=== PATIENT | male | born 1935 | race Caucasian/White ===

== ENCOUNTER 2017-03-08 21:00 | Inpatient (IN) | payer MEDICARE, BC ==
[2017-03-08] MEDS ORDERED: MAGNESIUM HYDROXIDE SUSP 30 ML CUP PO PRN (23:15)
[2017-03-08] MEDS ORDERED: ACETAMINOPHEN 325 MG TAB PO PRN (23:15)
[2017-03-08] MEDS ORDERED: LORazepam 0.5 MG TAB age > 65 yrs PO PRN (23:15)
[2017-03-08] MEDS ORDERED: ALUMINUM/MAGNESIUM/SIMETH 30 ML CUP PO PRN (23:15)
[2017-03-08] MEDS ORDERED: LORazepam 2 MG/ML VIAL - age > 65 yrs IM PRN (23:15)
[2017-03-09 01:07] VITALS: BP_SYST 180; BP_SYST 204; BP_DIAS 82; BP_DIAS 95; PULSE 70; RESP 18; TEMP 98.2; O2SAT 98
[2017-03-09 07:43] VITALS: BP 190/100; PULSE 97; O2SAT 97
[2017-03-09] MEDS: NICOTINE 21 MG/24 HR PATCH T-DERMAL SCH (08:43)
[2017-03-09 10:00] VITALS: BP 182/82; PULSE 67; O2SAT 98
[2017-03-09] MEDS ORDERED: AMLO2.5T PO (10:22)
[2017-03-09] MEDS ORDERED: BENZ1CAP8 PO (10:22)
[2017-03-09] MEDS ORDERED: DONE10TA7 PO (10:22)
[2017-03-09] MEDS ORDERED: MEMA1TAB2 PO (10:22)
[2017-03-09] MEDS ORDERED: TAMS0.4C4 PO (10:22)
[2017-03-09] MEDS ORDERED: AZEL1SPR2 EACH NARE (10:22)
[2017-03-09] MEDS ORDERED: ALBU6.7H INH (10:22)
[2017-03-09] MEDS ORDERED: OMEP40CA2 PO (10:22)
[2017-03-09 14:32] VITALS: BP 178/81; PULSE 68; RESP 18; TEMP 98.5; O2SAT 99
--- NOTE | 2017-03-09 15:51 | HHI.HP ---
Provisional Diagnosis Admission Date Mar 08, 2017 at 21:00 [place] I. Dementia with behavioral disturbances Certification of Person's Competence To Provide Express and Informed Consent I have personally examined Nick Romero , a person being served at [facility] on, Mar 09, 2017 15:44. Express and informed consent means consent voluntarily given in writing, by a competent person, after sufficient explanation and disclosure of the subject matter involved to enable the person to make a knowing and willful decision without any element of force, fraud, deceit, duress, or other form of constraint or coercion. This person is 18 years of age or older, is not now known to be incompetent to consent to treatment with a guardian advocate, and does not have a health care surrogate or proxy currently making medical treatment decisions. I have found this person to be one of the following: [] Competent to provide express and informed consent, as defined above, for voluntary admission to this facility and is competent to provide express and informed consent for treatment. He/she has the consistent capacity to make well reasoned, willful, and knowing decisions concerning his or her medical or mental health treatment. The person fully and consistently understands the purpose of the admission for examination/placement and is fully capable of personally exercising all rights assured [place] Incompetent to provide express and informed consent to voluntary admission, and this is incompetent to provide express and informed consent to treatment. The person must be transferred to involuntary status and a petition for a guardian advocate filed with the Circuit Court. [X] Refusing to provide express and informed consent to voluntary admission but is competent to provide express and informed consent for treatment. The person must be discharged or transferred to involuntary status. Form shall be completed within 24 hours of a person's arrival at the receiving facility and filed in the clinical record of each person: 1. Admitted on a voluntary basis 2. Permitted to provide express and informed consent to his/her own treatment 3. Allowed to transfer from involuntary to voluntary status 4. Prior to permitting a person to consent to his or her own treatment after having been previously found incompetent to consent to treatment. History of Present Illness Capacity: Lacks Capacity HPI The patient is a 81-year-old man, domiciled with his , psychiatric history of dementia, medical history of COPD and CKD, was brought to the hospital under [facility]agu[facility]re act from [facility] in [facility] due to alleged aggressive behavior at home, agitation, and statement that he wanted to kill his and his daughter. On psychiatric evaluation today patient is found calm, cooperative, and pleasantly confused. Patient is alert, he knows his name, but he doesn't know where he is, he doesn't know the reason of his hospitalization, he doesn't know the date, he can repeat 3 words, but is unable to recall them in 5 minutes. His concentration and attention also seemed to be impaired. He can follow very simple commands. He reports good mood, denies depression, denies suicidal and homicidal ideation, he denies visual and auditory hallucinations. In the psychiatric unit the patient has been no problematic, no agitation or aggressive behavior reported. Review of Systems Except as stated in HPI: all other systems reviewed are Neg Past Family Social History Coded Allergies: No Allergy Information Available (Verified Allergy, Unknown, 03/09/17) Reported Medications Azelastine Nasal [place] (Azelastine Nasal [place]) 0.1% [place], 2 SPRAY EACH NARE BID for Allergies, #1 BOTTLE 0 Refills 03/09/17 Tamsulosin (Tamsulosin) 0.4 Mg Cap, 0.4 MG PO HS for Manage Prostate Problems, # 30 CAP 0 Refills 03/09/17 Albuterol 6.7 GM Inh (Proventil Hfa 6.7 GM Inh) 90 Mcg/Act Aer, INH, #1 INHALER 0 Refills 03/09/17 Amlodipine (Amlodipine) 2.5 Mg Tab, 2.5 MG PO DAILY, #30 TAB 0 Refills 03/09/17 Memantine (Memantine) 10 Mg Tab, 10 MG PO BID for Alzheimer's Dementia, TAB 0 Refills 03/09/17 Omeprazole (Omeprazole) 40 Mg Cap, 40 MG PO DAILY, #30 CAP 0 Refills 03/09/17 Donepezil (Donepezil) 10 Mg Tab, 10 MG PO HS, #30 TAB 0 Refills 03/09/17 Benzonatate (Benzonatate) 100 Mg Cap, 100 MG PO for Cough, CAP 0 Refills 03/09/17 Current Medications Medications (Trade) Dose Ordered Sig/Yakelin Route Start Time Stop Time Status Last Admin (Ativan) 0.5 mg Q12H PRN PO 03/08/17 23:15 (Ativan Inj) 0.5 mg Q12H PRN IM 03/08/17 23:15 03/09/17 01:10 (Tylenol) 650 mg Q4H PRN PO 03/08/17 23:15 (Milk Of Magnesia Liq) 30 ml DAILY PRN PO 03/08/17 23:15 (Mag-Al Plus Susp Liq) 30 ml Q6H PRN PO 03/08/17 23:15 (Habitrol 21 Mg Patch.24 Hr) 1 patch DAILY T-DERMAL 03/09/17 09:00 03/09/17 08:43 Miscellaneous Information 1 HS T-DERMAL 03/09/17 21:00 Physical Exam Vital Signs Vital Signs Date Time Temp Pulse Resp B/P (MAP) Pulse Ox O2 Delivery O2 Flow Rate FiO2 03/09/17 14:32 98.5 68 18 178/81 (113) 99 I/O 03/09/17 03/09/17 03/09/17 07:59 15:59 23:59 Intake Total 240 ml Balance 240 ml Mental Status Examination Appearance: Appropriate Consciousness: Alert Orientation: Person Motor Activity: Normal gait Speech: Unremarkable Language: Adequate Fund of Knowledge: Adequate Attention and Concentration: Adequate Memory: Impaired Mood: Appropriate Affect: Appropriate Thought Process & Associations: Intact Thought Content: Appropriate Hallucination Type: None Delusion Type: None Suicidal Ideation: No Suicidal Plan: No Suicidal Intention: No Homicidal Ideation: No Homicidal Plan: No Homicidal Intention: No Insight: Adequate Judgment: Adequate Assessment & Plan Problem List: (1) Unspecified psychosis ICD Codes: F29 - Unspecified psychosis not due to a substance or known physiological condition Assessment & Plan: Patient was transferred to [place] from [facility] under Izaguirre act with an alleged episodes of aggressive behavior at home, and due to suicidal homicidal statement against his and daughter. On psychiatric evaluation today patient shows significant evidence of what seem to be severe cognitive impairment. However, no neuropsychiatric symptoms observed at this moment. Patient will be On psychiatric hospitalization for observation and monitoring station of mood and behavior. Will order a low-dose of Seroquel at night, 12.5 mg at bedtime. Will order a consult for second opinion to psychiatry, a consult for hospitalization for underlying medical conditions. cooler room worker intervention for collateral information, psychosocial assessment, to coordinate a safe discharge. Assessment & Plan Estimated LOS: days Sekou Villalba MD Mar 09, 2017 15:51
[2017-03-09] MEDS ORDERED: PILL SPLITTER OTHER PRN (16:00)
[2017-03-09 17:47] VITALS: BP 178/74; PULSE 68; RESP 16; TEMP 98; O2SAT 98
[2017-03-09 22:11] VITALS: BP 166/82; PULSE 71; RESP 15; TEMP 97.9; O2SAT 95
[2017-03-10 02:20] VITALS: BP 147/67; PULSE 67; RESP 16; TEMP 97.9; O2SAT 96
[2017-03-10 06:05] VITALS: BP 149/72; PULSE 69; RESP 18; TEMP 98.3; O2SAT 96
[2017-03-10] MEDS: QUEtiapine FUMARATE 25 MG TAB PO SCH ×2 (09:14→11:29)
[2017-03-10] MEDS: REMOVE OLD NICOTINE PATCH T-DERMAL SCH ×2 (09:16→21:00)
[2017-03-10] MEDS: NICOTINE 21 MG/24 HR PATCH T-DERMAL SCH (09:16)
--- NOTE | 2017-03-10 10:29 | PD.CONS ---
HPI Service [facility] Consult Requested By Dr. Villalba Reason for Consult Medical management Primary Care Physician No Primary Care Physician Diagnoses: History of Present Illness This is a 81-year-old male with past medical history dementia, hypertension, GERD, chronic kidney disease who presented with behavioral disturbances. Patient is a very poor historian so most of information taken from medical record. When I asked patient if he knew why he was here he stated no but he needs to go home to take care of his . He stated he had no complaints and is doing well. Patient answers all my questions appropriately. Per medical record patient was brought to the hospital under Izaguirre act from [facility] in [place] due to alleged aggressive behavior at home All other review of system review the patient is negative. Past Family Social History Allergies: Coded Allergies: No Allergy Information Available (Verified Allergy, Unknown, 03/09/17) Past Medical History Hypertension, GERD, BPH, dementia, chronic kidney disease Past Surgical History Unable to obtain since patient is a poor historian. Reported Medications Azelastine Nasal [place] (Azelastine HCl) 0.1% [place] 2 [place] EACH NARE BID Tamsulosin (Tamsulosin HCl) 0.4 Mg Cap 0.4 Mg PO HS Proventil Hfa 6.7 GM Inh (Albuterol Sulfate) 90 Mcg/Act Aer Unknown Dose INH Amlodipine (Amlodipine Besylate) 2.5 Mg Tab 2.5 Mg PO DAILY Memantine 10 Mg Tab 10 Mg PO BID Omeprazole 40 Mg Cap 40 Mg PO DAILY Donepezil 10 Mg Tab 10 Mg PO HS Benzonatate 100 Mg Cap 100 Mg PO Active Ordered Medications Current Medications Lorazepam (Ativan) 0.5 mg Q12H PRN PO MODERATE TO SEVERE ANXIETY Last administered on 03/09/17 16:41; Start 03/08/17 at 23:15 Lorazepam (Ativan Inj) 0.5 mg Q12H PRN IM MODERATE TO SEVERE ANXIETY Last administered on 03/09/17 01:10; Start 03/08/17 at 23:15 Acetaminophen (Tylenol) 650 mg Q4H PRN PO Pain 1-5 or Temp >101F; Start at 23:15 Magnesium Hydroxide (Milk Of Magnesia Liq) 30 ml DAILY PRN PO CONSTIPATION; Start 03/08/17 at 23:15 Al Hydrox/Mg Hydrox/Simethicone (Mag-Al Plus Susp Liq) 30 ml Q6H PRN PO DYSPEPSIA; Start 03/08/17 at 23:15 Nicotine (Habitrol 21 Mg Patch.24 Hr) 1 patch DAILY T-DERMAL Last administered on 03/09/17 08:43; Start 03/09/17 at 09:00 Miscellaneous Information 1 HS T-DERMAL Last administered on 03/10/17 09:16; Start 03/09/17 at 21:00 Quetiapine Fumarate (SEROquel) 12.5 mg BID@09,12 PO Last administered on 09:14; Start 03/10/17 at 09:00 Miscellaneous (Pill Splitter) 1 ea UNSCH PRN OTHER SEE LABEL COMMENTS; Start 03/09/17 at 16:00 Donepezil HCl (Aricept) 10 mg HS PO ; Start 03/10/17 at 21:00; Status UNV Memantine (Namenda) 10 mg BID PO ; Start 03/10/17 at 21:00; Status UNV Tamsulosin HCl (Flomax) 0.4 mg HS PO ; Start 03/10/17 at 21:00; Status UNV Non-Formulary Medication 2 spray BID EACH NARE ; Start 03/10/17 at 21:00; Status UNV Non-Formulary Medication 40 mg DAILY PO ; Start 03/11/17 at 09:00; Status UNV Family History Unable to obtain since patient is a poor historian. Social History Patient stated that he lives with his . Per medical records he also lives with his daughter. Patient drinks about 2 beers per day he stated that he never feels like he has any withdrawal symptoms including the shakes if he does not drink. He smokes about 6 cigarettes per day for very long time. Physical Exam Vital Signs Vital Signs Date Time Temp Pulse Resp B/P (MAP) Pulse Ox O2 Delivery O2 Flow Rate FiO2 03/10/17 06:05 98.3 69 18 149/72 (97) 96 03/10/17 02:20 97.9 67 16 147/67 (93) 96 03/09/17 22:11 97.9 71 15 166/82 (110) 95 03/09/17 17:47 98.0 68 16 178/74 (108) 98 03/09/17 14:32 98.5 68 18 178/81 (024) 73 Physical Exam GENERAL: This is a well-nourished, well-developed patient, in no apparent distress. SKIN: No rashes, ecchymoses or lesions. Cool and dry. HEAD: Atraumatic. Normocephalic. No temporal or scalp tenderness. EYES: Pupils equal round and reactive. Extraocular motions intact. No scleral icterus. No injection or drainage. ENT: Nose without bleeding, purulent drainage or septal hematoma. Throat without erythema, tonsillar hypertrophy or exudate. Uvula midline. Airway patent. NECK: Trachea midline. No JVD or lymphadenopathy. Supple, nontender, no meningeal signs. CARDIOVASCULAR: Regular rate and rhythm without murmurs, gallops, or rubs. RESPIRATORY: Clear to auscultation. Breath sounds equal bilaterally. No wheezes , rales, or rhonchi. GASTROINTESTINAL: Abdomen soft, non-tender, nondistended. No hepato-splenomegaly , or palpable masses. No guarding. MUSCULOSKELETAL: Extremities without clubbing, cyanosis, or edema. No joint tenderness, effusion, or edema noted. No calf tenderness. Negative Homans sign bilaterally. NEUROLOGICAL: Awake and alert. Cranial nerves II through XII intact. Motor and sensory grossly within normal limits. Five out of 5 muscle strength in all muscle groups. Normal speech. Assessment and Plan Assessment and Plan 81-year-old male with dementia who was admitted secondary to dementia with behavioral disturbances Dementia with behavioral disturbances -Patient has been admitted to inpatient psych. At the moment he does not display any agitation. Management per psychiatrist. Hypertension -At the moment blood pressures uncontrolled but his home medication has not been resumed. Will resume home medication and monitor and adjust accordingly. GERD/chronic kidney disease/BPH -Resume home medication. -Labs have been ordered but has not been obtained. Will follow labs. -Avoid nephrotoxins. DVT prophylaxis -Encourage ambulation. Discussed Condition With patient Tita Orozco MD Mar 10, 2017 10:29
[2017-03-10] MEDS: amLODIPine BESYLATE 5 MG TAB PO SCH (11:29)
--- NOTE | 2017-03-10 13:10 | HHI.PYPN ---
Subjective Remarks Patient was seen today for psychiatric reevaluation, patient is following his back, he is disoriented to place and time, just oriented in present. Patient says that he is very upset, he says that he is waiting for his to get him out of here. He denies suicidal and homicidal ideation, he denies visual and auditory hallucinations. She has been compliant with his medications, no significant side effects. No agitation or aggressive behavior reported. Mental Status Examination Appearance: Appropriate Consciousness: Alert Orientation: Person Motor Activity: Normal gait Speech: Unremarkable Language: Adequate Fund of Knowledge: Adequate Attention and Concentration: Adequate Memory: Impaired Mood: Appropriate Affect: Appropriate Thought Process & Associations: Intact Thought Content: Appropriate Hallucination Type: None Delusion Type: None Suicidal Ideation: No Suicidal Plan: No Suicidal Intention: No Homicidal Ideation: No Homicidal Plan: No Homicidal Intention: No Insight: Adequate Judgment: Adequate Results Vitals/IOs Vital Signs Date Time Temp Pulse Resp B/P (MAP) Pulse Ox O2 Delivery O2 Flow Rate FiO2 03/10/17 06:05 98.3 69 18 149/72 (97) 96 Intake and Output 03/10/17 03/10/17 03/10/17 07:59 15:59 23:59 Intake Total 0 ml Balance 0 ml Assessment & Plan Problem List: (1) Unspecified psychosis ICD Codes: F29 - Unspecified psychosis not due to a substance or known physiological condition Assessment & Plan: We'll continue current psychotropic regimen, close monitoring of behavior and mood, brief supportive psychotherapy provided. Assessment & Plan Estimated LOS: days Justification for Cont. Inpt. Patient has an elevated risk of danger to self and others at a lower level of care. Sekou Villalba MD Mar 10, 2017 13:10
[2017-03-10 17:08] VITALS: BP 166/79; PULSE 93; RESP 17; TEMP 98.8; O2SAT 97
--- NOTE | 2017-03-10 17:38 | HHI.PYPN ---
Subjective Remarks This is a request for second opinion. Admission note was reviewed and I agree with the history case was discussed with nursing and patient was evaluated. Patient remains confused and disoriented. Oriented X1. He could not remember he had a daughter and later could not tell me her name. Admits to memory loss but has no recollection of his admitting incident. Mental Status Examination Appearance: Appropriate Consciousness: Alert Orientation: Person Motor Activity: Normal gait Speech: Unremarkable Language: Adequate Fund of Knowledge: Adequate Attention and Concentration: Adequate Memory: Impaired Mood: Appropriate Affect: Appropriate Thought Process & Associations: Intact Thought Content: Appropriate Hallucination Type: None Delusion Type: None Suicidal Ideation: No Suicidal Plan: No Suicidal Intention: No Homicidal Ideation: No Homicidal Plan: No Homicidal Intention: No Insight: Adequate Judgment: Adequate Results Vitals/IOs Vital Signs Date Time Temp Pulse Resp B/P (MAP) Pulse Ox O2 Delivery O2 Flow Rate FiO2 03/10/17 17:08 98.8 93 17 166/79 (108) 97 Intake and Output 03/10/17 03/10/17 03/11/17 08:00 16:00 00:00 Intake Total 0 ml Balance 0 ml Assessment & Plan Problem List: (1) Unspecified psychosis ICD Codes: F29 - Unspecified psychosis not due to a substance or known physiological condition Assessment & Plan I agree with the first opinion. Criteria include threatening behavior before admission and change in mental status Justification for Cont. Inpt. Patient would decompensate in a less restrictive setting Neville Simmons DO Mar 10, 2017 17:38
[2017-03-10 18:29] LABS: ANION GAP 6 MEQ/L (5-15); BICARBONATE 30.2 MEQ/L (21.0-32.0); BLOOD UREA NITROGEN 27 MG/DL (7-18); CHLORIDE 99 MEQ/L (98-107); GLOMERULAR FILTRATION RATE 45 ML/MIN (>89); SODIUM (NA) 135 MEQ/L (136-145)
[2017-03-10 18:31] LABS: HDL CHOLESTEROL 128.1 MG/DL (40.0-60.0); LDL CHOLESTEROL 71 MG/DL (0-99)
[2017-03-10] MEDS: TAMSULOSIN HCL 0.4 MG CAP PO SCH (20:48)
[2017-03-10] MEDS: MEMANTINE HCL 10 MG TAB PO SCH (20:49)
[2017-03-10] MEDS: DONEPEZIL HCL 5 MG TAB PO SCH (20:49)
[2017-03-10] MEDS ORDERED: [UNRECOGNIZED DRUG - OTHER] NASAL SCH (21:00)
[2017-03-10] MEDS ORDERED: AZELASTINE NASAL SCH (21:00)
[2017-03-11 00:02] VITALS: BP 156/74; PULSE 72; RESP 18; TEMP 97.1; O2SAT 97
[2017-03-11 05:57] VITALS: BP 130/67; PULSE 72; RESP 16; TEMP 97.1; O2SAT 97
[2017-03-11] MEDS: PANTOPRAZOLE SOD 40 MG DELAYED RELEASE TAB PO SCH (08:06)
[2017-03-11] MEDS: QUEtiapine FUMARATE 25 MG TAB PO SCH ×2 (08:06→12:00)
[2017-03-11] MEDS: amLODIPine BESYLATE 5 MG TAB PO SCH (08:06)
[2017-03-11] MEDS: MEMANTINE HCL 10 MG TAB PO SCH ×2 (08:06→20:38)
[2017-03-11] MEDS: NICOTINE 21 MG/24 HR PATCH T-DERMAL SCH (09:00)
--- NOTE | 2017-03-11 12:37 | HHI.PR ---
Subjective Remarks Follow-up for agitation Patient laying in bed watching TV. He had no complaints. He stated he is just trying to get better so he can go back home to his . I asked some questions in regards to his daughter and he stated that she does not live with him and that she is never home. Patient is able to give me his name. He is could not tell me location or date. Objective Vitals Vital Signs Date Time Temp Pulse Resp B/P (MAP) Pulse Ox O2 Delivery O2 Flow Rate FiO2 03/11/17 05:57 97.1 72 16 130/67 (88) 97 03/11/17 00:02 97.1 72 18 156/74 (101) 97 03/10/17 17:08 98.8 93 17 166/79 (108) 97 I/O 03/10/17 03/10/17 03/10/17 03/11/17 03/11/17 03/11/17 07:00 15:00 23:00 07:00 15:00 23:00 Intake Total 0 ml 360 ml 0 ml 240 ml Balance 0 ml 360 ml 0 ml 240 ml Intake Oral 0 ml 360 ml 0 ml 240 ml # Voids 1 2 2 2 Result Diagram: 03/10/17 1704 Objective Remarks GENERAL: in NAD CARDIOVASCULAR: Regular rate and rhythm without murmurs, gallops, or rubs. RESPIRATORY: Breath sounds equal bilaterally. No accessory muscle use. GASTROINTESTINAL: Abdomen soft, non-tender, nondistended. MUSCULOSKELETAL: No cyanosis, or edema. BACK: Nontender without obvious deformity. No CVA tenderness. Medications and IVs Current Medications Lorazepam (Ativan) 0.5 mg Q12H PRN PO MODERATE TO SEVERE ANXIETY Last administered on 03/09/17 16:41; Start 03/08/17 at 23:15 Lorazepam (Ativan Inj) 0.5 mg Q12H PRN IM MODERATE TO SEVERE ANXIETY Last administered on 03/09/17 01:10; Start 03/08/17 at 23:15 Acetaminophen (Tylenol) 650 mg Q4H PRN PO Pain 1-5 or Temp >101F; Start at 23:15 Magnesium Hydroxide (Milk Of Magnesia Liq) 30 ml DAILY PRN PO CONSTIPATION; Start 03/08/17 at 23:15 Al Hydrox/Mg Hydrox/Simethicone (Mag-Al Plus Susp Liq) 30 ml Q6H PRN PO DYSPEPSIA; Start 03/08/17 at 23:15 Nicotine (Habitrol 21 Mg Patch.24 Hr) 1 patch DAILY T-DERMAL Last administered on 03/09/17 08:43; Start 03/09/17 at 09:00 Miscellaneous Information 1 HS T-DERMAL Last administered on 03/10/17 09:16; Start 03/09/17 at 21:00 Quetiapine Fumarate (SEROquel) 12.5 mg BID@09,12 PO Last administered on 12:00; Start 03/10/17 at 09:00 Miscellaneous (Pill Splitter) 1 ea UNSCH PRN OTHER SEE LABEL COMMENTS; Start 03/09/17 at 16:00 Donepezil HCl (Aricept) 10 mg HS PO Last administered on 03/10/17 20:49; Start 03/10/17 at 21:00 Memantine (Namenda) 10 mg BID PO Last administered on 03/11/17 08:06; Start 03/10/17 at 21:00 Tamsulosin HCl (Flomax) 0.4 mg HS PO Last administered on 03/10/17 20:48; Start 03/10/17 at 21:00 Patient Own Medication PT OWN MED: AZELAST... BID NASAL ; Start 03/10/17 at 21: 00; Status Future Hold Pantoprazole Sodium (Protonix) 40 mg DAILY PO Last administered on 03/11/17 08:06; Start 03/11/17 at 09:00 Amlodipine Besylate (Norvasc) 2.5 mg DAILY PO Last administered on 03/11/17 08:06; Start 03/10/17 at 10:30 A/P Assessment and Plan 81-year-old male with dementia who was admitted secondary to dementia with behavioral disturbances Dementia with behavioral disturbances -Patient has been admitted to inpatient psych. At the moment he does not display any agitation. Management per psychiatrist. Hypertension -This morning blood pressure was normal. Will continue her current regimen. GERD/chronic kidney disease/BPH -Continue home medication. -Avoid nephrotoxins. DVT prophylaxis -Encourage ambulation. Tita Orozco MD Mar 11, 2017 12:37
[2017-03-11 13:02] VITALS: BP 131/63; PULSE 81; RESP 17; TEMP 97.7; O2SAT 99
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
--- NOTE | 2017-03-11 16:09 | HHI.PYPN ---
Subjective Remarks Patient was seen today for psychiatric reevaluation, patient is persistently demanded to be discharged back home with his , he is unable to remember the reason of his hospitalization, he denies aggressive behavior at home, denies depression, denies anxiety, denies psychosis, he denies visual and auditory hallucinations, he denies suicidal and homicidal ideation. He is oriented in person, disoriented in time and place. No agitation, no aggressive behavior reported during this hospitalization. He is compliant with his medications, no significant side effects. Review of Systems Except as stated in HPI: all other systems reviewed are Neg Mental Status Examination Appearance: Appropriate Consciousness: Alert Orientation: Person Motor Activity: Normal gait Speech: Unremarkable Language: Adequate Fund of Knowledge: Adequate Attention and Concentration: Adequate Memory: Impaired Mood: Appropriate Affect: Appropriate, Other ("alright") Thought Process & Associations: Intact Thought Content: Appropriate Hallucination Type: None Delusion Type: None Suicidal Ideation: No Suicidal Plan: No Suicidal Intention: No Homicidal Ideation: No Homicidal Plan: No Homicidal Intention: No Insight: Poor Judgment: Poor Results Labs Test 03/10/17 17:04 Blood Urea Nitrogen 27 MG/DL Creatinine 1.50 MG/DL Random Glucose 149 MG/DL Calcium Level 8.4 MG/DL Sodium Level 135 MEQ/L Potassium Level 4.0 MEQ/L Chloride Level 99 MEQ/L Carbon Dioxide Level 30.2 MEQ/L Anion Gap 6 MEQ/L Estimat Glomerular Filtration Rate 45 ML/MIN Triglycerides Level 81 MG/DL Cholesterol Level 215 MG/DL LDL Cholesterol 71 MG/DL HDL Cholesterol 128.1 MG/DL Cholesterol/HDL Ratio 1.67 RATIO Vitals/IOs Vital Signs Date Time Temp Pulse Resp B/P (MAP) Pulse Ox O2 Delivery O2 Flow Rate FiO2 03/11/17 13:02 97.7 81 17 131/63 (85) 99 Intake and Output 03/11/17 03/11/17 03/12/17 08:00 16:00 00:00 Intake Total 0 ml 960 ml Balance 0 ml 960 ml Assessment & Plan Problem List: (1) Unspecified psychosis ICD Codes: F29 - Unspecified psychosis not due to a substance or known physiological condition Assessment & Plan: Continue current psychotropic regimen. Continue close monitoring of behavior and mood. Assessment & Plan Estimated LOS: days Justification for Cont. Inpt. Patient has an elevated risk to decompensate at a lower level of care. Sekou Villalba MD Mar 11, 2017 16:09
[2017-03-11 16:13] LABS: HEMOGLOBIN A1a 1.5 %; HEMOGLOBIN A1b 0.7 %; HEMOGLOBIN Ao 84.1 %; HEMOGLOBIN F 1.9 %; HEMOGLOBIN LA1C 2.1 %; HEMOGLOBIN P3 3.7 %
[2017-03-11 17:31] VITALS: BP 120/66; PULSE 81; RESP 17; TEMP 98; O2SAT 94
[2017-03-11] MEDS: DONEPEZIL HCL 5 MG TAB PO SCH (20:38)
[2017-03-11] MEDS: TAMSULOSIN HCL 0.4 MG CAP PO SCH (20:38)
[2017-03-11] MEDS: REMOVE OLD NICOTINE PATCH T-DERMAL SCH (20:56)
[2017-03-12 05:27] VITALS: BP 161/75; PULSE 66; RESP 16; TEMP 97.3; O2SAT 97
[2017-03-12] MEDS: MEMANTINE HCL 10 MG TAB PO SCH ×2 (08:30→21:39)
[2017-03-12] MEDS: PANTOPRAZOLE SOD 40 MG DELAYED RELEASE TAB PO SCH (08:30)
[2017-03-12] MEDS: amLODIPine BESYLATE 5 MG TAB PO SCH (08:31)
[2017-03-12] MEDS: QUEtiapine FUMARATE 25 MG TAB PO SCH ×2 (08:32→13:37)
[2017-03-12] MEDS: NICOTINE 21 MG/24 HR PATCH T-DERMAL SCH (08:36)
--- NOTE | 2017-03-12 09:11 | HHI.PR ---
Subjective Remarks Follow up on patient with HTN. Patient seen and examined. Patient reports feeling well. He denies any complaints. He denies any lightheadedness or dizziness. Denies any fever, chills or cough. Denies any chest pain or dyspnea. Denies any N/V or abdominal pain. Reports good appetite. Discussed with nursing staff, reports some increased confusion overnight, visual hallucinations seeing people at the window. Better today. Objective Vitals Vital Signs Date Time Temp Pulse Resp B/P (MAP) Pulse Ox O2 Delivery O2 Flow Rate FiO2 03/12/17 05:27 97.3 66 16 161/75 (103) 97 03/11/17 17:31 98.0 81 17 120/66 (84) 94 03/11/17 13:02 97.7 81 17 131/63 (85) 99 I/O 03/11/17 03/11/17 03/11/17 03/12/17 03/12/17 03/12/17 07:00 15:00 23:00 07:00 15:00 23:00 Intake Total 0 ml 960 ml 120 ml 240 ml Balance 0 ml 960 ml 120 ml 240 ml Intake Oral 0 ml 960 ml 120 ml 240 ml # Voids 2 4 Result Diagram: 03/10/17 1704 Objective Remarks GENERAL: Well-nourished, well-developed elderly patient in NAD. Awake and alert. Appears comfortable. SKIN: Warm and dry. HEAD: Normocephalic. Atraumatic. EYES: EOMI. No scleral icterus. No injection or drainage. ENT: No nasal bleeding or discharge. Mucous membranes pink and moist. NECK: Supple. Trachea midline. CARDIOVASCULAR: Regular rate and rhythm. S1, S2 noted. No murmur appreciated. RESPIRATORY: No accessory muscle use. Clear to auscultation. Breath sounds equal bilaterally. GASTROINTESTINAL: Abdomen soft, non-tender, nondistended. Normoactive bowel sounds x4. MUSCULOSKELETAL: No obvious deformities. Extremities without clubbing, cyanosis , or edema. NEUROLOGICAL: Awake and alert. Able to move all extremities. Normal speech. Medications and IVs Current Medications Medications (Trade) Dose Ordered Sig/Yakelin Route Start Time Stop Time Status Last Admin (Ativan) 0.5 mg Q12H PRN PO 03/08/17 23:15 03/09/17 16:41 (Ativan Inj) 0.5 mg Q12H PRN IM 03/08/17 23:15 03/09/17 01:10 (Tylenol) 650 mg Q4H PRN PO 03/08/17 23:15 (Milk Of Magnesia Liq) 30 ml DAILY PRN PO 03/08/17 23:15 (Mag-Al Plus Susp Liq) 30 ml Q6H PRN PO 03/08/17 23:15 (Habitrol 21 Mg Patch.24 Hr) 1 patch DAILY T-DERMAL 03/09/17 09:00 03/09/17 08:43 Miscellaneous Information 1 HS T-DERMAL 03/09/17 21:00 03/10/17 09:16 (SEROquel) 12.5 mg BID@09,12 PO 03/10/17 09:00 03/12/17 08:32 (Pill Splitter) 1 ea UNSCH PRN OTHER 03/09/17 16:00 (Aricept) 10 mg HS PO 03/10/17 21:00 03/11/17 20:38 (Namenda) 10 mg BID PO 03/10/17 21:00 03/12/17 08:30 (Flomax) 0.4 mg HS PO 03/10/17 21:00 03/11/17 20:38 Patient Own Medication PT OWN MED: AZELAST... BID NASAL 03/10/17 21:00 Future Hold (Protonix) 40 mg DAILY PO 03/11/17 09:00 03/12/17 08:30 (Norvasc) 2.5 mg DAILY PO 03/10/17 10:30 03/12/17 08:31 A/P Assessment and Plan 81-year-old male with dementia who was admitted secondary to dementia with behavioral disturbances Dementia with behavioral disturbances -Patient has been admitted to inpatient psych. At the moment he does not display any agitation. Management per psychiatrist. -Continue Aricept and Memantine Hypertension -Some elevation in BP this am before med given. Good control yesterday. -VS q 6h, monitor BP trend -continue Norvasc at present dose for now. Will increase to 5mg if BP trends upwards. CKD -unknown creatinine baseline -avoid nephrotoxic agents -encourage po intake -monitor kidney fxn as indicated COPD -not in exacerbation -Duonebs prn -monitor respiratory status GERD -continue PPI BPH -Continue Flomax 0.4mg daily DVT prophylaxis -Encourage ambulation -Per nursing staff, patient ambulating well on the unit Discussed with patient, nursing staff and Carmita Beckham Mar 12, 2017 09:11
[2017-03-12] MEDS ORDERED: RESP: ALBUTEROL 2.5 MG/IPRATROPIUM 0.5 MG NEB (PRN) NEB (09:15)
[2017-03-12] MEDS ORDERED: MEMA1TAB2 PO (13:20)
[2017-03-12] MEDS ORDERED: TAMS5CAP PO (13:20)
[2017-03-12] MEDS ORDERED: QUET1TAB7 PO (13:20)
[2017-03-12] MEDS ORDERED: ARIC5TAB2 PO (13:20)
--- NOTE | 2017-03-12 13:26 | HHI.PYPN ---
Subjective Remarks Patient was seen today for psychiatric evaluation, patient is calm, cooperative , pleasantly demented confuse. Patient says that he has been feeling okay, he just want to go back home with his . He denies depression, denies anxiety, denies suicidal and homicidal ideation, denies visual and auditory hallucinations. The patient is oriented in person, disoriented in time and place. Compliant with medications, no significant side effects. Mental Status Examination Appearance: Appropriate Consciousness: Alert Orientation: Person Motor Activity: Normal gait Speech: Unremarkable Language: Adequate Fund of Knowledge: Adequate Attention and Concentration: Adequate Memory: Impaired Mood: Appropriate Affect: Appropriate, Other ("alright") Thought Process & Associations: Intact Thought Content: Appropriate Hallucination Type: None Delusion Type: None Suicidal Ideation: No Suicidal Plan: No Suicidal Intention: No Homicidal Ideation: No Homicidal Plan: No Homicidal Intention: No Insight: Poor Judgment: Poor Results Labs Test 03/12/17 12:34 Vitals/IOs Vital Signs Date Time Temp Pulse Resp B/P (MAP) Pulse Ox O2 Delivery O2 Flow Rate FiO2 03/12/17 05:27 97.3 66 16 161/75 (103) 97 Intake and Output 03/12/17 03/12/17 03/13/17 08:00 16:00 00:00 Intake Total 0 ml 240 ml Balance 0 ml 240 ml Assessment & Plan Problem List: (1) Unspecified psychosis ICD Codes: F29 - Unspecified psychosis not due to a substance or known physiological condition Assessment & Plan Estimated LOS: days Justification for Cont. Inpt. Patient has an elevated risk to decompensate at a lower level of care. Continue current psychotropic regimen. Sekou Villalba MD Mar 12, 2017 13:26
[2017-03-12 13:44] LABS: BICARBONATE 31.6 MEQ/L (21.0-32.0); POTASSIUM 4.1 MEQ/L (3.5-5.1)
[2017-03-12 18:11] VITALS: BP 140/65; PULSE 80; RESP 17; TEMP 98; O2SAT 97
[2017-03-12] MEDS: REMOVE OLD NICOTINE PATCH T-DERMAL SCH (21:00)
[2017-03-12] MEDS: DONEPEZIL HCL 5 MG TAB PO SCH (21:39)
[2017-03-12] MEDS: TAMSULOSIN HCL 0.4 MG CAP PO SCH (21:39)
[2017-03-13 06:09] VITALS: BP 152/68; PULSE 72; RESP 16; TEMP 96.6; O2SAT 98
[2017-03-13] MEDS: MEMANTINE HCL 10 MG TAB PO SCH (09:10)
[2017-03-13] MEDS: PANTOPRAZOLE SOD 40 MG DELAYED RELEASE TAB PO SCH (09:10)
[2017-03-13] MEDS: amLODIPine BESYLATE 5 MG TAB PO SCH (09:10)
[2017-03-13] MEDS: QUEtiapine FUMARATE 25 MG TAB PO SCH (09:10)
[2017-03-13] MEDS: NICOTINE 21 MG/24 HR PATCH T-DERMAL SCH (09:13)
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
== END 2017-03-13 10:45 | DRG 885 ==
LOC: H4EA 21:00
PROVIDERS: ADMIT Psychiatry & Neurology Psychiatry; ATTEND Psychiatry & Neurology Psychiatry
DX: F29 Unspecified psychosis not due to a substance or known physiological condition (principal); F03.91 Unspecified dementia, unspecified severity, with behavioral disturbance; J44.9 Chronic obstructive pulmonary disease, unspecified; N18.9 Chronic kidney disease, unspecified; I12.9 Hypertensive chronic kidney disease with stage 1 through stage 4 chronic kidney disease, or unspecified chronic kidney disease; K21.9 Gastro-esophageal reflux disease without esophagitis; N40.0 Benign prostatic hyperplasia without lower urinary tract symptoms; F17.210 Nicotine dependence, cigarettes, uncomplicated
CPT/HCPCS: 80048; 80061; 83036; 84443; J2060

== ENCOUNTER 2017-04-12 08:31 | Emergency (ER) | payer MEDICARE, BC ==
[~2017-04-12] VITALS: Ht 165.1 cm; Wt 65.0 kg
[~2017-04-12 08:31] MED LIST: ALBU6.7H INH; AMLO2.5T PO; ARIC5TAB6 PO; AZEL1SPR2 EACH NARE; BENZ1CAP54 PO; MEMA1TAB2 PO; OMEP40CA2 PO; QUET1TAB7 PO; TAMS5CAP PO
[2017-04-12 08:41] VITALS: BP 182/81; PULSE 71; RESP 16; TEMP 97.8; O2SAT 100
--- NOTE | 2017-04-12 09:06 | PD ---
HPI Chief Complaint: Respiratory Symptoms Time Seen by Provider: 09:02 Travel History International Travel<30 days: No Contact w/Intl Traveler<30days: No Traveled to known affect area: No History of Present Illness HPI Patient is an 81-year-old male with a history of dense dementia presents the emergency department for evaluation of hypoxia at the longterm. Patient apparently has a history of pulmonary fibrosis as well as oxygen all the time, during breakfast today he was found to be without his oxygen slightly took his oxygen saturation was a little low. 911 was called and was taken to the emergency department. On arrival to the ER the patient is satting 100% and his prescribed 2 L nasal cannula. Patient is fairly densely demented and therefore history is limited. He does exhibit a wet sounding cough while in the ER. Per EMS no other complaints are voiced by the patient nor the longterm staff. PFSH Past Medical History COPD: Yes Dementia: Yes GERD: Yes Hypertension: Yes Psychiatric: No Past Surgical History Surgical History: Unable to Obtain Social History Alcohol Use: No Tobacco Use: No Substance Use: No Allergies-Medications (Allergen,Severity, Reaction): Coded Allergies: No Known Allergies (Unverified , 04/12/17) Reported Meds & Prescriptions Reported Meds & Active Scripts Active Quetiapine (Quetiapine Fumarate) 25 Mg Tab 12.5 Mg PO BID@ Aricept (Donepezil HCl) 5 Mg Tablet 10 Mg PO HS Flomax (Tamsulosin HCl) 0.4 Mg Cap 0.4 Mg PO HS Memantine 10 Mg Tab 10 Mg PO BID Reported Azelastine Nasal [place] (Azelastine HCl) 0.1% [place] 2 [place] EACH NARE BID Proventil Hfa 6.7 GM Inh (Albuterol Sulfate) 90 Mcg/Act Aer Unknown Dose INH Amlodipine (Amlodipine Besylate) 2.5 Mg Tab 2.5 Mg PO DAILY Omeprazole 40 Mg Cap 40 Mg PO DAILY Benzonatate 100 Mg Cap 100 Mg PO Review of Systems ROS Limitations: Other: (dementia) Physical Exam Narrative GENERAL: [Well-developed well-nourished in no obvious distress SKIN: Focused skin assessment warm/dry. HEAD: Atraumatic. Normocephalic. EYES: Pupils equal and round. No scleral icterus. No injection or drainage. ENT: No nasal bleeding or discharge. Mucous membranes pink and moist. NECK: Trachea midline. No JVD. CARDIOVASCULAR: Regular rate and rhythm. No murmur appreciated. RESPIRATORY: No accessory muscle use. Clear to auscultation. Breath sounds equal bilaterally. Exhibits wet sounding cough likely upper respiratory nature. GASTROINTESTINAL: Abdomen soft, non-tender, nondistended. Hepatic and splenic margins not palpable. MUSCULOSKELETAL: No obvious deformities. No clubbing. No cyanosis. No edema. NEUROLOGICAL: Awake and alert. No obvious cranial nerve deficits. Moves all 4 extremities. Normal speech. PSYCHIATRIC: Densely demented, limiting further history. Data Data Last Documented VS Vital Signs Date Time Temp Pulse Resp B/P (MAP) Pulse Ox O2 Delivery O2 Flow Rate FiO2 04/12/17 08:42 100 Nasal Cannula 2.00 04/12/17 08:41 97.8 71 16 182/81 (114) Orders Orders Chest, Single Ap (04/12/17 ) Ed Discharge Order (04/12/17 09:52) [facility] Medical Decision Making Medical Screen Exam Complete: Yes Emergency Medical Condition: Yes Differential Diagnosis Hypoxia, chronic lung disease, pneumonia. Narrative Course Patient roomed in emergency department given his wet sounding cough chest x-ray was obtained. He was observed for several hours in emerged permit had no desaturation no fever in the ER. There is no indication further workup for this patient at this time. He stable for discharge to the longterm. Last 24 hours Impressions Chest X-Ray 04/12/17 0000 Signed Impressions: Service Date/Time: Wednesday, April 12, 2017 09:24 - CONCLUSION: 1. COPD changes. Theron Chacon MD Diagnosis Primary Impression: Hypoxia Additional Impression: Hypoxemia Additional Instructions: If patient has low sats on oxygen he should return to ER immediately. Disposition: 03 DISCHARGE TO SNF Condition: Stable Nick Guillermo MD Apr 12, 2017 09:06
--- NOTE | 2017-04-12 09:50 | RADRPT ---
EXAM DATE/TIME: 04/12/2017 09:24 [place] COMPARISON: No previous studies available for comparison. INDICATIONS : Cough, short of breath MEDICAL HISTORY : None. SURGICAL HISTORY : None. ENCOUNTER: Initial ACUITY: 2 days PAIN SCORE: Non-responsive. LOCATION: Bilateral chest FINDINGS: The heart is at the upper limits of normal in size. There moderate COPD changes. Several punctate renae cified granuloma are seen within the left upper lobe. No pneumothorax is identified. The visualized bony structures are grossly intact. CONCLUSION: 1. COPD changes. Theron Chacon MD on April 12, 2017 at 9:46 Board Certified Radiologist. This report was verified electronically.
== END 2017-04-12 12:01 ==
LOC: NEPE 08:31
DX: R09.02 Hypoxemia (principal); F03.90 Unspecified dementia, unspecified severity, without behavioral disturbance, psychotic disturbance, mood disturbance, and anxiety; I10 Essential (primary) hypertension; K21.9 Gastro-esophageal reflux disease without esophagitis; J44.9 Chronic obstructive pulmonary disease, unspecified
CPT/HCPCS: 71010; 99283